=== PATIENT | male | born 2005 | race Caucasian/White ===

== ENCOUNTER 2023-08-23 12:05 | Emergency (ER) | payer OTHER, BC ==
[2023-08-23 12:16] VITALS: RESP 18; TEMP 97.8
--- NOTE | 2023-08-23 12:23 | ED ---
General Adult HPI - General Chief complaint: Extremity Injury, Lower Stated complaint: Left knee injury Time Seen by Provider: 08/23/23 12:14 Source: patient, EMS Mode of arrival: EMS Limitations: no limitations - History of Present Illness Initial comments: Dictation was produced using [employer] dictation software. please excuse any grammatical, word or spelling errors. Chief Complaint: 18-year-old male presents emergency Department with knee dislocation History of Present Illness: 18-year-old male who has past medical history of p atellar dislocation. Most recently was 6 months ago. States that today he was jumping off one of the dump trucks. He jumped straight landed when all of a sudden his knee Moved off to the left. He rolled over to side and was able to push his knee back into place. States that it still hurts especially when he bears weight. Denies any numbness and paresthesias to the distal extremity The ROS documented in this emergency department record has been reviewed and confirmed by me. Those systems with pertinent positive or negative responses have been documented in the HPI. All other systems are other negative and/or noncontributory. - Related Data Allergies Allergy/AdvReac Type Severity Reaction Status Date / Time amoxicillin Allergy Rash/Hives Verified 08/23/23 12:15 Review of Systems ROS Statement: Those systems with pertinent positive or pertinent negative responses have been documented in the HPI. ROS Other: All systems not noted in ROS Statement are negative. Past Medical History Additional Past Medical History / Comment(s): knee dislocation 6 months ago History of Any Multi-Drug Resistant Organisms: None Reported Additional Past Surgical History / Comment(s): pins in arm when he was 8 Past Psychological History: No Psychological Hx Reported Smoking Status: Never smoker Past Alcohol Use History: None Reported Past Drug Use History: None Reported General Exam - General Exam Comments Initial Comments: General: Well-appearing, nontoxic, no acute distress. Head: Normocephalic, atraumatic Eyes: PERRLA, EOMI ENT: Airway patent Chest: Nonlabored breathing Skin: No visual rash, normal skin tone Neuro: Alert and oriented 3 Musculoskeletal: No gross abnormalities Left lower extremity: No gross deformities, neurovascularly intact Limitations: no limitations Course Vital Signs 08/23/23 12:07 Temperature 97.8 F Pulse Rate 86 Respiratory 18 Rate Blood Pressure 158/80 O2 Sat by Pulse 97 Oximetry Medical Decision Making - Medical Decision Making Was pt. sent in by a medical professional or institution ([facility] Collier, PROCEDURAL NURSE, urgent care, hospital, or [place] [facility] facility...) When possible be specific @ -No Did you speak to anyone other than the patient for history (EMS, parent, family, police, friend...)? What history was obtained from this source @ -No Did you review nursing and triage notes (agree or disagree)? Why? @ -I reviewed and agree with nursing and triage notes Were old charts reviewed (outside hosp., previous admission, EMS record, old EKG, old radiological studies, urgent care reports/EKG's, [place] [facility] records)? Report findings @ -No old charts were reviewed Differential Diagnosis (chest pain, altered mental status, abdominal pain women, abdominal pain men, vaginal bleeding, musculoskeletal, weakness, fever, dyspnea, syncope, headache, dizziness, GI bleed, back pain, seizure, CVA, palpatations, mental health)? @ -not applicable EKG interpreted by me (3pts min.). @ -None done X-rays interpreted by me (1pt min.). @ -Left knee x-ray shows small effusion. No fractures CT interpreted by me (1pt min.). @ -None done U/S interpreted by me (1pt. min.). @ -None done What testing was considered but not performed or refused? (CT, X-rays, U/S, labs)? Why? @ -None What meds were considered but not given or refused? Why? @ -None Did you discuss the management of the patient with other professionals (professionals i.e. IN[facility]ENC[facility] Collier, PROCEDURAL NURSE, lab, RT, psych nurse, social media intern, color checker, teacher, senior escrow officer, case finisher)? Give summary @ -No Was smoking cessation discussed for >3mins.? @ -No Was critical care preformed (if so, how long)? @ -No Were there social determinants of health that impacted care today? How? (Homelessness, low income, unemployed, alcoholism, drug addiction, transportation, low edu. Level, literacy, decrease access to med. care, longterm, rehab)? @ -No Was there de-escalation of care discussed even if they declined (Discuss DNR or withdrawal of care, Hospice)? DNR status @ -No What co-morbidities impacted this encounter? (DM, HTN, Smoking, COPD, CAD, Cancer, CVA, ARF, Chemo, Hep., AIDS, mental health diagnosis, sleep apnea, morbid obesity)? @ -None Was patient admitted / discharged? Hospital course, mention meds given and route, prescriptions, significant lab abnormalities, going to OR and other pertinent info. @ -18 y Old male presents to emergency department after lateral dislocation. He reduced it on his own prior to hospital arrival. Vital signs stable. X-ray shows no call fractures. Patient placed in knee immobilizer. Weightbearing as tolerated. Given outpatient referral to orthopedic surgery. Undiagnosed new problem with uncertain prognosis? @ -No Drug Therapy requiring intensive monitoring for toxicity (Heparin, Nitro, Insulin, Cardizem)? @ -No Were any procedures done? @ -No Diagnosis/symptom? Acute, or Chronic, or Acute on Chronic? Uncomplicated (without systemic symptoms) or Complicated (systemic symptoms)? @ -Patellar dislocation Side effects of treatment? @ -No Exacerbation, Progression, or Severe Exacerbation? @ -No Poses a threat to life or bodily function? How? (Chest pain, [place], [place], pneumonia, PE, COPD, DKA, ARF, appy, cholecystitis, CVA, Diverticulitis, Homicidal, Suicidal, threat to staff... and all critical care pts) @ -Yes Disposition Clinical Impression: Patellar dislocation Disposition: HOME SELF-CARE Condition: Good Instructions (If sedation given, give patient instructions): Knee Dislocation (ED) Additional Instructions: weight bear as tolerated Is patient prescribed a controlled substance at d/c from ED?: No Referrals: Constantin Marie DO [Doctor of Osteopathic Medicine] - 1-2 days Time of Disposition: 13:23
--- NOTE | 2023-08-23 13:14 | XR ---
EXAMINATION TYPE: XR knee complete LT DATE OF EXAM: 08/23/2023 1:02 PM CLINICAL INDICATION:Male, 18 years old with history of patellar dislocation; [facility] COMPARISON: None. TECHNIQUE: XR knee complete LT; examined in Frontal, lateral and oblique projections. FINDINGS: Osseous mineralization appears appropriate. No evidence of destructive lesion or aggressive periostit is. No acute fracture or dislocation. Joint spaces appear maintained. Possible small suprapatellar ef fusion. No radiopaque foreign body seen. If there is persistent concern, follow-up radiographs with patellar sunrise view and MRI may be obtai heam. IMPRESSION: No acute fracture or dislocation. Possible small effusion.
[2023-08-23 14:14] VITALS: BP 128/68; PULSE 77
== END 2023-08-23 13:45 | disposition home or self-care (01) ==
LOC: EC 12:05
DX: S83.005A Unspecified dislocation of left patella, initial encounter (principal); Z88.0 Allergy status to penicillin; W18.30XA Fall on same level, unspecified, initial encounter; Y93.39 Activity, other involving climbing, rappelling and jumping off
CPT/HCPCS: 99283